=== PATIENT | male | born 1990 | race African-American/Black ===

== ENCOUNTER 2017-06-23 00:40 | Emergency (ER) | payer OTHER ==
[~2017-06-23] VITALS: Ht 175.3 cm; Wt 68.5 kg
[2017-06-23 00:46] VITALS: BP 122/71; PULSE 65; RESP 18; TEMP 99; O2SAT 100
--- NOTE | 2017-06-23 01:09 | PD ---
HPI Chief Complaint: Injury Time Seen by Provider: 01:05 Travel History International Travel<30 days: No Contact w/Intl Traveler<30days: No Traveled to known affect area: No History of Present Illness HPI The patient is a 26-year-old right-hand dominant male who states for the last 24 hours is noted that his right hand is swollen and painful. He states in his sleep he may have hit his hand. There is tenderness over the right third metacarpal. He denies any puncture wound and specifically denies punching anybody in the mouth. PFSH Past Medical History Medical other: Yes (PTSD) Tetanus Vaccination: Unknown Influenza Vaccination: No Past Surgical History Surgical History: No Previous Surgery Social History Alcohol Use: Yes Tobacco Use: No Substance Use: No Allergies-Medications (Allergen,Severity, Reaction): Coded Allergies: *MDRO Multi-Drug Resistant Organism (Unverified Adverse Reaction, Unknown , 06/23/17) MRSA (abdominal wound) - 10/2014 Reported Meds & Prescriptions Reported Meds & Active Scripts Active No Active Prescriptions or Reported Medications Review of Systems Except as stated in HPI: all other systems reviewed are Neg (the patient is a 26-year-old male that for the last 24 hours as noted that his right hand is swollen) Physical Exam Narrative GENERAL: Well-nourished, well-developed patient in slight apparent distress with his right hand swelling/pain. His vital signs are normal. SKIN: Focused skin assessment warm/dry. HEAD: Normocephalic. EYES: No scleral icterus. No injection or drainage. NECK: Supple, trachea midline. No JVD or lymphadenopathy. CARDIOVASCULAR: Regular rate and rhythm without murmurs, gallops, or rubs. RESPIRATORY: Breath sounds equal bilaterally. No accessory muscle use. GASTROINTESTINAL: Abdomen soft, non-tender, nondistended. MUSCULOSKELETAL: No cyanosis, or edema. There is tenderness although no linear no rotatory deformity is present over the right third metacarpal. There is no deformity of the hand other than swelling which appears mostly dorsally. The swelling is not hot and does not appear to be infected. Good capillary refill and pinprick is present distally on the fingers. BACK: Nontender without obvious deformity. No CVA tenderness. Data Data Last Documented VS Vital Signs Date Time Temp Pulse Resp B/P (MAP) Pulse Ox O2 Delivery O2 Flow Rate FiO2 06/23/17 00:46 99.0 65 18 122/71 (88) 100 Orders Orders Hand, Complete ([id number]) (06/23/17 01:09) MDM Medical Decision Making Medical Screen Exam Complete: Yes Emergency Medical Condition: Yes Medical Record Reviewed: Yes Differential Diagnosis Contusion right hand, fracture right hand, allergic reaction right hand, infection right hand Narrative Course The patient appears to have a contusion of the right hand. His hand is not hot like an infection and the swelling appears to be right over the mid third metacarpal where it appears to have hit something. Diagnosis Primary Impression: Contusion of right hand Additional Instructions: Ice is good for 24 hours and elevation should be done is much as possible. Elevation as above your heart. Follow-up Sunday with your primary care physician if you still have problems. Med/Other Pt SpecificInfo: No Change to Meds Scripts No Active Prescriptions or Reported Meds Disposition: 01 DISCHARGE HOME Condition: Stable Nicholas Butler MD Jun 23, 2017 01:09
--- NOTE | 2017-06-23 01:33 | RADRPT ---
EXAM DATE/TIME: 06/23/2017 01:25 [facility] COMPARISON: No previous studies available for comparison. INDICATIONS : Right hand pain and swelling to the metacarpal region. MEDICAL HISTORY : None. SURGICAL HISTORY : None. ENCOUNTER: Initial ACUITY: 1 day PAIN SCORE: 8/10 LOCATION: Right upper extremity FINDINGS: Three view examination of the right hand demonstrates no soft tissue swelling, dislocation, or fractu re. The carpal bones appear intact. The interphalangeal and metacarpophalangeal joints are intact. Bony mineralization is normal. CONCLUSION: Unremarkable examination of the right hand. Malvin Woodson Jr., MD on June 23, 2017 at 1:31 Board Certified Radiologist. This report was verified electronically.
[2017-06-23] MEDS ORDERED: PERC5TAB12 PO (01:44)
[2017-06-23] MEDS ORDERED: oxyCODONE/ACETAMINOPHEN 7.5 MG/325 MG TAB PO ONE (01:45)
[2017-06-23 02:17] VITALS: RESP 18
== END 2017-06-23 02:17 | disposition home or self-care (01) ==
LOC: PHED 00:40
DX: S60.221A Contusion of right hand, initial encounter (principal); X58.XXXA Exposure to other specified factors, initial encounter
CPT/HCPCS: 73130; 99283

== ENCOUNTER 2017-11-08 19:09 | Emergency (ER) | payer OTHER ==
[~2017-11-08] VITALS: Ht 175.3 cm; Wt 66.5 kg
[~2017-11-08 19:09] MED LIST: PERC5TAB12 PO
[2017-11-08 19:17] VITALS: BP 149/91; PULSE 86; RESP 18; TEMP 98.4; O2SAT 97
[2017-11-08] MEDS ORDERED: FAMOTIDINE 20 MG TAB PO ONE (20:00)
[2017-11-08] MEDS ORDERED: predniSONE 50 MG TAB PO ONE (20:00)
[2017-11-08] MEDS ORDERED: PRED50 PO (20:02)
--- NOTE | 2017-11-08 20:02 | PD ---
HPI Chief Complaint: Skin Problem Time Seen by Provider: 19:49 Travel History International Travel<30 days: No Contact w/Intl Traveler<30days: No Traveled to known affect area: No History of Present Illness HPI 27-year-old male here for evaluation of diffuse body rash. The patient first noticed the rash about 4 days ago. He believes it may be from using soap at a hotel room in [place]. The rash started on his legs and progressive the rest of his body. States that it is pruritic. He has applied calamine lotion and is taking Benadryl, however the rash seems to be getting worse. No tongue or lip swelling. No respiratory difficulty. He is here with his significant other who states that she has been in contact with the patient as well as the rash, however she has not contracted similar symptoms. Patient denies any known allergies. PFSH Past Medical History Diminished Hearing: No Tetanus Vaccination: Unknown Influenza Vaccination: No ?: Not Social History Alcohol Use: Yes Tobacco Use: No Substance Use: No Allergies-Medications (Allergen,Severity, Reaction): Coded Allergies: *MDRO Multi-Drug Resistant Organism (Unverified Adverse Reaction, Unknown , 11/08/17) MRSA (abdominal wound) - 10/2014 Reported Meds & Prescriptions Reported Meds & Active Scripts Active Percocet (Oxycodone-Acetaminophen) 5-325 mg Tab 1-2 Tab PO Q4H PRN Review of Systems Except as stated in HPI: all other systems reviewed are Neg Physical Exam Narrative GENERAL: Well-developed, well-nourished, comfortable, no apparent distress. SKIN: Diffuse vesicular type rash with a few areas of urticaria. No signs of cellulitis. Web spaces between the fingers show no track lines to indicate scabies. HEAD: Atraumatic. Normocephalic. EYES: Pupils equal and round. No scleral icterus. No injection or drainage. ENT: Mucous membranes pink and moist. No intraoral lesions. No tongue or lip swelling. No drooling or stridor. NECK: Trachea midline. No JVD. CARDIOVASCULAR: Regular rate and rhythm. RESPIRATORY: No accessory muscle use. Clear to auscultation. Breath sounds equal bilaterally. GASTROINTESTINAL: Abdomen soft, non-tender, nondistended. MUSCULOSKELETAL: No obvious deformities. No clubbing. No cyanosis. No edema. NEUROLOGICAL: Awake and alert. No obvious cranial nerve deficits. Motor grossly within normal limits. Normal speech. PSYCHIATRIC: Appropriate mood and affect; insight and judgment normal. Data Data Last Documented VS Vital Signs Date Time Temp Pulse Resp B/P (MAP) Pulse Ox O2 Delivery O2 Flow Rate FiO2 11/08/17 19:17 98.4 86 18 149/91 (110) 97 Orders Orders Prednisone (Deltasone) (11/08/17 20:00) Famotidine (Pepcid) (11/08/17 20:00) MDM Medical Decision Making Medical Screen Exam Complete: Yes Emergency Medical Condition: Yes Differential Diagnosis Contact dermatitis, allergic reaction, insect bites, scabies Narrative Course This is a 27-year-old male with diffuse body rash. Rash appears to be from a contact dermatitis and the patient believes it is from using soap at a hotel room in [place] 4 days ago. There are no intraoral lesions. Negative Nikolsky sign. At this point my plan is to start the patient on a 5 day course of prednisone. He was advised to continue taking Benadryl and to apply calamine lotion for pruritus. He follows in the [place], and I advised that he present to them this week for further treatment and evaluation. He was informed on when to return to the emergency department. He verbalizes understanding and agreement with plan. Diagnosis Primary Impression: Dermatitis Referrals: Primary Care Physician 3 days Additional Instructions: Follow-up with your primary care physician this week. Return to the emergency department for worsening symptoms or any other concerns. Scripts Prednisone (Prednisone) 50 Mg Tab 50 MG PO DAILY for 5 Days, #5 TAB 0 Refills Prov: Per Aguilar MD 11/08/17 Disposition: 01 DISCHARGE HOME Condition: Stable Per Aguilar MD Nov 08, 2017 20:02
== END 2017-11-08 20:15 | disposition home or self-care (01) ==
LOC: PHEFT 19:09
DX: L30.9 Dermatitis, unspecified (principal); Z79.899 Other long term (current) drug therapy
CPT/HCPCS: 99283; J7512

== ENCOUNTER 2017-11-22 19:28 | Emergency (ER) | payer OTHER ==
[~2017-11-22] VITALS: Ht 175.3 cm; Wt 66.0 kg
[~2017-11-22 19:28] MED LIST changes: +PRED50 PO
[2017-11-22 19:45] VITALS: PULSE 76; TEMP 98.4; O2SAT 97
[2017-11-22] MEDS ORDERED: SODIUM CHLOR 0.9% 1000 ML INJ 1,000 ML IV SCH (20:21)
--- NOTE | 2017-11-22 20:24 | PD ---
HPI Chief Complaint: Abdominal Pain Time Seen by Provider: 20:16 Travel History International Travel<30 days: No Contact w/Intl Traveler<30days: No Traveled to known affect area: No History of Present Illness HPI 27-year-old male complains of nausea vomiting, abdominal pain and low back pain. Patient states that the symptoms started yesterday. Patient states the abdominal pain and cramping pain intermittent pain diffuse over the abdomen. Patient denies any pain radiation. Patient complains of aching pain low back area. Patient denies any earache sore throat coughing congestion. Patient states that he has intermittent nausea vomiting. Patient denies any dysuria frequency. PFSH Past Medical History Medical History: Denies Significant Hx Diminished Hearing: No Tetanus Vaccination: Unknown Influenza Vaccination: No Past Surgical History Surgical History: No Previous Surgery Social History Alcohol Use: Yes Tobacco Use: No Substance Use: No Allergies-Medications (Allergen,Severity, Reaction): Coded Allergies: *MDRO Multi-Drug Resistant Organism (Unverified Adverse Reaction, Unknown , 11/22/17) MRSA (abdominal wound) - 10/2014 Reported Meds & Prescriptions Reported Meds & Active Scripts Active No Active Prescriptions or Reported Medications Review of Systems General / Constitutional: No: Fever Eyes: No: Visual changes HENT: No: Headaches Cardiovascular: No: Chest Pain or Discomfort Respiratory: No: Shortness of Breath Gastrointestinal: Positive: Nausea, Vomiting, Abdominal Pain Genitourinary: No: Dysuria Musculoskeletal: No: Pain Skin: No Rash Neurologic: No: Weakness Psychiatric: No: Depression Endocrine: No: Polydipsia Hematologic/Lymphatic: No: Easy Bruising Physical Exam Narrative GENERAL: Well-nourished, well-developed patient. SKIN: Focused skin assessment warm/dry. HEAD: Normocephalic. EYES: No scleral icterus. No injection or drainage. NECK: Supple, trachea midline. No JVD or lymphadenopathy. CARDIOVASCULAR: Regular rate and rhythm without murmurs, gallops, or rubs. RESPIRATORY: Breath sounds equal bilaterally. No accessory muscle use. GASTROINTESTINAL: Abdomen soft, non-tender, nondistended. MUSCULOSKELETAL: No cyanosis, or edema. BACK: Nontender without obvious deformity. No CVA tenderness. Neurologic exam normal. Data Data Last Documented VS Vital Signs Date Time Temp Pulse Resp B/P (MAP) Pulse Ox O2 Delivery O2 Flow Rate FiO2 11/22/17 20:36 98 Room Air 11/22/17 19:45 98.4 76 Orders Orders Complete Blood Count With Diff (11/22/17 20:21) Comprehensive Metabolic Panel (11/22/17 20:21) Lipase (11/22/17 20:21) Urinalysis - C+S If Indicated (11/22/17 20:21) Abdomen, Flat & Upright (11/22/17 ) Iv Access Insert/Monitor (11/22/17 20:21) Ecg Monitoring (11/22/17 20:21) Oximetry (11/22/17 20:21) Ondansetron Inj (Zofran Inj) (11/22/17 20:30) Sodium Chlor 0.9% 1000 Ml Inj (Ns 1000 M (11/22/17 20:21) Sodium Chloride 0.9% Flush (Ns Flush) (11/22/17 20:30) Famotidine Inj (Pepcid Inj) (11/22/17 20:30) Labs Laboratory Tests Test 11/22/17 20:30 11/22/17 20:35 11/22/17 21:00 White Blood Count 6.6 TH/MM3 Red Blood Count 5.37 MIL/MM3 Hemoglobin 15.6 GM/DL Hematocrit 47.2 % Mean Corpuscular Volume 87.9 FL Mean Corpuscular Hemoglobin 29.1 PG Mean Corpuscular Hemoglobin Concent 33.1 % Red Cell Distribution Width 11.7 % Platelet Count 222 TH/MM3 Mean Platelet Volume 7.1 FL Neutrophils (%) (Auto) 74.8 % Lymphocytes (%) (Auto) 15.4 % Monocytes (%) (Auto) 8.6 % Eosinophils (%) (Auto) 0.5 % Basophils (%) (Auto) 0.7 % Neutrophils # (Auto) 5.0 TH/MM3 Lymphocytes # (Auto) 1.0 TH/MM3 Monocytes # (Auto) 0.6 TH/MM3 Eosinophils # (Auto) 0.0 TH/MM3 Basophils # (Auto) 0.0 TH/MM3 CBC Comment DIFF FINAL Differential Comment Blood Urea Nitrogen 15 MG/DL Creatinine 1.10 MG/DL Random Glucose 98 MG/DL Total Protein 7.4 GM/DL Albumin 4.0 GM/DL Calcium Level 9.4 MG/DL Alkaline Phosphatase 63 U/L Aspartate Amino Transf (AST/SGOT) 16 U/L Alanine Aminotransferase (ALT/SGPT) 22 U/L Total Bilirubin 0.4 MG/DL Sodium Level 140 MEQ/L Potassium Level 4.9 MEQ/L Chloride Level 102 MEQ/L Carbon Dioxide Level 33.4 MEQ/L Anion Gap 5 MEQ/L Estimat Glomerular Filtration Rate 97 ML/MIN Lipase 145 U/L Urine Color YELLOW Urine Turbidity CLEAR Urine pH 6.5 Urine Specific [place] 1.020 Urine Protein NEG mg/dL Urine Glucose (UA) NEG mg/dL Urine Ketones NEG mg/dL Urine Occult Blood NEG Urine Nitrite NEG Urine Bilirubin NEG Urine Urobilinogen 1.0 MG/DL Urine Leukocyte Esterase NEG MDM Medical Decision Making Medical Screen Exam Complete: Yes Emergency Medical Condition: Yes Interpretation(s) 21:10 PM. CBC within normal limits. CMP within normal limits. UA is negative. Differential Diagnosis Differential diagnosis including gastroenteritis, gastritis, PUD, pancreatitis, cholecystitis, colitis, UTI, pyelonephritis, nephrolithiasis. Narrative Course 27-year-old male with abdominal pain, low back pain, nausea vomiting. Normal saline solution 1 L IV bolus. Pepcid 20 mg IV. Zofran 4 mg IV. Diagnosis Primary Impression: Gastroenteritis Patient Instructions: General Instructions Additional Instructions: Take medication as needed. Ibuprofen Tylenol for aching pain. Follow-up with personal physician. Return if persistent problem or worse. Med/Other Pt SpecificInfo: Prescription(s) given Scripts Dicyclomine (Bentyl) 10 Mg Cap 10 MG PO TID Y for Bowel Management, #15 CAP 0 Refills Prov: Adin Baugh MD 11/22/17 Ondansetron Odt (Zofran Odt) 4 Mg Tab 4 MG SL Q6HR Y for Nausea/Vomiting, #10 TAB 0 Refills Prov: Adin Baugh MD 11/22/17 Disposition: 01 DISCHARGE HOME Condition: Stable Adin Baugh MD Nov 22, 2017 20:24
[2017-11-22] MEDS ORDERED: ONDANSETRON HCL 4 MG/2 ML VIAL IVP ONE (20:30)
[2017-11-22] MEDS ORDERED: FAMOTIDINE 20 MG/2 ML VIAL IV PUSH ONE (20:30)
[2017-11-22] MEDS ORDERED: SODIUM CHLORIDE 0.9% FLUSH 10 ML FLUSH IV FLUSH PRN (20:30)
[2017-11-22 20:36] VITALS: O2SAT 98
[2017-11-22 20:42] LABS: BASOPHIL % 0.7 % (0.0-2.0); EOSINOPHIL % 0.5 % (0.0-4.0); HEMATOCRIT 47.2 % (39.0-51.0); HEMOGLOBIN 15.6 GM/DL (13.0-17.0); LYMPH % 15.4 % (9.0-44.0); MEAN CELL VOLUME 87.9 FL (80.0-100.0); MEAN CORPUSCULAR HEMOGLOBIN 29.1 PG (27.0-34.0); MEAN CORPUSCULAR HGB CONC 33.1 % (32.0-36.0); MEAN PLATELET VOLUME 7.1 FL (7.0-11.0); MONO % 8.6 % (0.0-8.0); MONOCYTE # 0.6 TH/MM3 (0-0.9); NEUT % 74.8 % (16.0-70.0); PLATELET COUNT 222 TH/MM3 (150-450); RED BLOOD COUNT 5.37 MIL/MM3 (4.50-5.90); RED CELL DISTRIBUTION WIDTH 11.7 % (11.6-17.2); WHITE BLOOD COUNT 6.6 TH/MM3 (4.0-11.0)
[2017-11-22 21:00] LABS: CHLORIDE 102 MEQ/L (98-107); SODIUM (NA) 140 MEQ/L (136-145)
[2017-11-22 21:03] LABS: CALCIUM 9.4 MG/DL (8.5-10.1)
[2017-11-22 21:04] LABS: BICARBONATE 33.4 MEQ/L (21.0-32.0); BLOOD UREA NITROGEN 15 MG/DL (7-18); GLUCOSE,RANDOM 98 MG/DL (74-106)
[2017-11-22 21:06] LABS: ALT (GPT) 22 U/L (12-78); AST (GOT) 16 U/L (15-37); GLOMERULAR FILTRATION RATE 97 ML/MIN (>89)
[2017-11-22 21:07] LABS: BILIRUBIN, URINE NEG (NEG); BLOOD, URINE NEG (NEG); GLUCOSE,URINE NEG (NEG); KETONE, URINE NEG (NEG); NITRITE,URINE NEG (NEG); PH, URINE 6.5 (5.0-8.5); URINE COLOR YELLOW (YELLW/STRAW); URINE LEUKOCYTE ESTERASE NEG (NEG)
[2017-11-22 21:08] LABS: TOTAL BILIRUBIN ADULT 0.4 MG/DL (0.2-1.0); TOTAL PROTEIN 7.4 GM/DL (6.4-8.2)
[2017-11-22 21:09] LABS: ALKALINE PHOSPHATASE 63 U/L (45-117)
[2017-11-22 21:11] LABS: BACTERIA, URINE RARE /hpf; SQUAMOUS EPITHELIAL CELL URINE 0-5 /hpf (0-5); WBC, URINE 0-2 /hpf (0-5)
[2017-11-22] MEDS ORDERED: ZOFR4TAB3 SL (21:15)
[2017-11-22] MEDS ORDERED: DICY10 PO (21:15)
[2017-11-22 21:20] VITALS: BP 140/80
--- NOTE | 2017-11-22 21:28 | RADRPT ---
EXAM DATE/TIME: 11/22/2017 20:44 [facility] COMPARISON: No previous studies available for comparison. INDICATIONS : Abdominal pain and vomiting since yesterday. MEDICAL HISTORY : None. SURGICAL HISTORY : None. ENCOUNTER: Initial ACUITY: 2 days PAIN SCORE: 10/10 LOCATION: Bilateral abdomen FINDINGS: Supine and upright views of the abdomen were performed. The abdominal bowel gas pattern is normal. No air fluid levels are seen. No abnormal masses, calcifications, or organomegaly is seen. The visu alized lower lungs are clear. No evidence of free intraperitoneal gas. Multiple calcified phlebolit hs in the pelvis. The osseous structures are unremarkable. CONCLUSION: Benign abdomen. Malvin Tinoco MD on November 22, 2017 at 21:27 Board Certified Radiologist. This report was verified electronically.
== END 2017-11-22 21:28 | disposition home or self-care (01) ==
LOC: PHED 19:28
DX: K52.9 Noninfective gastroenteritis and colitis, unspecified (principal); M54.5 Low back pain; R10.9 Unspecified abdominal pain
CPT/HCPCS: 74019; 80053; 81001; 83690; 85025; 96361; 96374; 96375; 99284; J2405; J7030